=== PATIENT | male | born 1950 | race Two or more races ===

== ENCOUNTER 2020-07-19 07:48 | Emergency (ER) | payer BC, MEDICARE ==
[~2020-07-19] VITALS: Ht 170.2 cm; Wt 84.8 kg
[2020-07-19] MEDS ORDERED: ADVAIR 100-501 EACH INH (08:12)
[2020-07-19 08:14] VITALS: BP 149/83
[2020-07-19] MEDS ORDERED: Acetaminophen 500mg (ES) tab ORAL ONE (08:15)
--- NOTE | 2020-07-19 08:15 | Emergency Room Report ---
History of Present Illness General Chief Complaint: Fever Source: Patient Present Illness HPI Patient presents with fever since . He was working in his apartment on [address] and felt blast of cold air on his back. Today he had a temperature of 101 at home and took a couple of aspirin. He is complaining about a mild headache at this time. According to his daughter he also has a rash. He neglected to say anything about this during the initial evaluation. Denies sore throat. He has decreased hearing. This headache is mild at this time by temporal and improved after taking aspirin. He denies any neck pain. There is no nausea, vomiting, diarrhea dysuria. He took a COVID-19 test yesterday but does not have the results. The patient has been social isolating. He denies any contacts with COVID-19 positive people. No sore throat, chest pain, palpitations, nausea, vomiting, diarrhea, dysuria, abdominal pain, shortness of breath, joint pain, depression, anxiety, visual changes, dizziness. Allergies: Coded Allergies: No Known Allergies (Unverified , 07/19/20) COVID-19 Screening Contact w/high risk pt: Yes Experienced COVID-19 symptoms?: Yes COVID-19 Testing performed OUTSIDE [employer]: Yes COVID-19 Screening: PUI COVID-19 COVID-19 Testing Source: nasal Patient History Past Medical History: see triage record Past Surgical History: other - Abdominal surgery for colonic polyps Social History Narrative retired from [employer] [place]. Father of Sandie Reviewed Nursing Documentation: PMH: Agreed; PSxH: Agreed Nursing Documentation-PMH Past Medical History: No History, Except For Hx Asthma: Yes Review of Systems All Other Systems: negative except mentioned in HPI Physical Exam Vital Signs Date Time Temp Pulse Resp B/P (MAP) Pulse Ox O2 Delivery O2 Flow Rate FiO2 07/19/20 08:04 99.5 75 17 165/85 (111) 96 Room Air Sp02 EP Interpretation: reviewed, normal General Appearance: well appearing, no apparent distress, GCS 15 Head: normocephalic Eyes: bilateral eye normal inspection, bilateral eye PERRL, bilateral eye EOMI ENT: normal pharynx, TMs + canals normal, moist mucus membranes Neck: supple, no meningismus Respiratory: lungs clear, normal breath sounds Cardiovascular #1: regular rate, rhythm Cardiovascular #2: 2+ radial (R) Gastrointestinal: normal inspection, normal bowel sounds, non tender, no mass, non-distended Musculoskeletal: back normal, normal range of motion, gait/station normal Neurologic: alert, oriented x3 Skin: warm/dry, other - Vesicular lesions in the teeth 3 dermatome on the right-hand side Medical Decision Making Diagnostic Impression: Primary Impression: Shingles Qualified Codes: B02.9 - Zoster without complications Additional Impression: COVID-19 ruled out by laboratory testing ER Course Patient presents with fever since , today is Monday. Differential includes COVID-19, viral syndrome, pneumonia, urinary tract infection, shingles amongst others. Based on his physical exam shingles is the diagnosis. However it is important to exclude COVID-19 and other [place] comorbid conditions. Patient is given a dose of Tylenol and also started on acyclovir. EKG no injury. Chest x-ray normal (read by radiologist as possible blunting of left costophrenic angle which is suspect). White count normal. CMP unremarkable. CPK elevated minimally. Urinalysis clear. COVID-19 negative Patient improved with treatment. Discussed treatment plan. Patient stable for outpatient observation and treatment. Laboratory Tests Test 07/19/20 08:08 07/19/20 08:15 Urine Color Yellow Urine Appearance Clear Urine pH 5 (4.5-8.0) Urine Specific [place] 1.020 (1.005-1.035) Urine Protein Negative (NEGATIVE) Urine Glucose (UA) Negative (NEGATIVE) Urine Ketones 1+ (NEGATIVE) H Urine Blood 1+ (NEGATIVE) H Urine Nitrite Negative (NEGATIVE) Urine Bilirubin Negative (NEGATIVE) Urine Urobilinogen Normal MG/DL (0.0-1.0) Urine Leukocyte Esterase Negative (NEGATIVE) Urine RBC 2-4 /HPF (0 - 0) H Urine WBC 0 /HPF (0 - 0) Urine Squamous Epithelial Cells None /LPF (NONE/OCC) Urine Bacteria None /HPF (NONE) Urine Mucus Occasional /LPF White Blood Count 7.4 K/UL (4.8-10.8) Red Blood Count 5.46 M/UL (4.70-6.10) Hemoglobin 16.1 G/DL (14.2-18.0) Hematocrit 45.5 % (42.0-52.0) Mean Corpuscular Volume 83 FL (80-99) Mean Corpuscular Hemoglobin 29.4 PG (27.0-31.0) Mean Corpuscular Hemoglobin Concent 35.3 G/DL (32.0-36.0) Red Cell Distribution Width 11.1 % (11.6-14.8) L Platelet Count 162 K/UL (150-450) Mean Platelet Volume 6.8 FL (6.5-10.1) Neutrophils (%) (Auto) 72.5 % (45.0-75.0) Lymphocytes (%) (Auto) 18.8 % (20.0-45.0) L Monocytes (%) (Auto) 6.3 % (1.0-10.0) Eosinophils (%) (Auto) 1.7 % (0.0-3.0) Basophils (%) (Auto) 0.7 % (0.0-2.0) Prothrombin Time 11.4 SEC (9.30-11.50) Prothrombin Time INR 1.0 (0.9-1.1) Activated Partial Thromboplast Time 26 SEC (23-33) Sodium Level 135 MMOL/L (136-145) L Potassium Level 4.8 MMOL/L (3.5-5.1) Chloride Level 103 MMOL/L (98-107) Carbon Dioxide Level 28 MMOL/L (21-32) Anion Gap 4 mmol/L (5-15) L Blood Urea Nitrogen 13 mg/dL (7-18) Creatinine 1.0 MG/DL (0.55-1.30) Estimated Glomerular Filtration Rate > 60 mL/min (>60) Glucose Level 133 MG/DL (74-106) H Lactic Acid Level 1.60 mmol/L (0.4-2.0) Calcium Level 9.4 MG/DL (8.5-10.1) Magnesium Level 2.1 MG/DL (1.8-2.4) Ferritin 315 NG/ML (8-388) Total Bilirubin 0.4 MG/DL (0.2-1.0) Aspartate Amino Transferase (AST) 19 U/L (15-37) Alanine Aminotransferase (ALT) 25 U/L (12-78) Alkaline Phosphatase 77 U/L (46-116) Lactate Dehydrogenase 225 U/L (81-234) Total Creatine Kinase 382 U/L (26-308) H Troponin I 0.000 ng/mL (0.000-0.056) C-Reactive Protein, Quantitative < 0.4 mg/dL (0.00-0.90) Pro-B-Type Natriuretic Peptide 62 pg/mL (0-125) Total Protein 8.3 G/DL (6.4-8.2) H Albumin 4.0 G/DL (3.4-5.0) Globulin 4.3 g/dL Albumin/Globulin Ratio 0.9 (1.0-2.7) L Lipase 131 U/L (73-393) Microbiology Date/Time Source Procedure Growth Status 07/19/20 08:15 Nasopharynx SARS-CoV-2 RdRp Gene Assay - Final Complete EKG Diagnostic Results Rate: normal Rhythm: NSR ST Segments: no acute changes Rhythm Strip Diag. Results EP Interpretation: yes Rhythm: NSR, no PVC's, no ectopy Chest X-Ray Diagnostic Results Chest X-Ray Diagnostic Results : Chest X-Ray Ordered: Yes # of Views/Limited/Complete: 1 View Indication: Other EP Interpretation: Yes Interpretation: no consolidation, no effusion, no pneumothorax Impression: No acute disease Electronically Signed by: Electronically signed by Tyson Downing MD Last Vital Signs Date Time Temp Pulse Resp B/P (MAP) Pulse Ox O2 Delivery O2 Flow Rate FiO2 07/19/20 10:57 98.0 82 18 130/80 98 Room Air Status: improved Disposition: HOME, SELF-CARE Condition: Improved Scripts Acetaminophen (Tylenol) 325 Mg Tablet 650 MG ORAL Q6H PRN for fever or pain, #20 TAB 0 Refills Prov: Tyson Downing MD 07/19/20 Capsaicin (Zostrix High Potency) 56.6 Gm Cream..g. 1 APPLIC TP BID PRN for shingles pain, #30 GM Prov: Tyson Downing MD 07/19/20 Valacyclovir Hcl* (VALTREX*) 500 Mg Tablet 1000 MG ORAL TID, #21 TAB Prov: Tyson Downing MD 07/19/20 Referrals: NON PHYSICIAN (PCP) Tyson Downing MD Jul 19, 2020 08:14
[2020-07-19 08:46] LABS: BASOPHILS % (AUTO) 0.7 % (0.0-2.0); EOSINOPHILS % (AUTO) 1.7 % (0.0-3.0); HEMATOCRIT 45.5 % (42.0-52.0); HEMOGLOBIN 16.1 G/DL (14.2-18.0); LYMPHOCYTES % (AUTO) 18.8 % (20.0-45.0); MEAN CORPUSCULAR VOLUME 83 FL (80-99); MONOCYTES % (AUTO) 6.3 % (1.0-10.0); NEUTROPHILS % (AUTO) 72.5 % (45.0-75.0); PLATELET COUNT 162 K/UL (150-450); RED BLOOD COUNT 5.46 M/UL (4.70-6.10); RED CELL DISTRIBUTION WIDTH 11.1 % (11.6-14.8); WHITE BLOOD COUNT 7.4 K/UL (4.8-10.8)
[2020-07-19 09:00] LABS: ANION GAP 4 mmol/L (5-15); BLOOD UREA NITROGEN 13 mg/dL (7-18); CALCIUM 9.4 MG/DL (8.5-10.1); CARBON DIOXIDE 28 MMOL/L (21-32); CHLORIDE 103 MMOL/L (98-107); POTASSIUM 4.8 MMOL/L (3.5-5.1); SODIUM 135 MMOL/L (136-145)
--- NOTE | 2020-07-19 09:08 | Diagnostic Imaging Report ---
EXAM: XR Chest, 1 View CLINICAL HISTORY: CP TECHNIQUE: Frontal view of the chest. COMPARISON: No relevant prior studies available. FINDINGS: Lungs: There is blunting left costophrenic angle may represent atelectasis, infiltrate or small left pleural effusion. No additional infiltrates are identified. Progress films are recommended. Pleural space: See above. Heart: Unremarkable. No cardiomegaly. Mediastinum: Unremarkable. Bones/joints: Unremarkable. IMPRESSION: There is blunting left costophrenic angle may represent atelectasis, infiltrate or small left pleural effusion. No additional infiltrates are identified. Progress films are recommended.
[2020-07-19 09:24] LABS: ALANINE AMINOTRANSFERASE 25 U/L (12-78); ALBUMIN/GLOBULIN RATIO 0.9 (1.0-2.7); ALKALINE PHOSPHATASE 77 U/L (46-116); ASPARTATE AMINO TRANSFERASE 19 U/L (15-37); BILIRUBIN,TOTAL 0.4 MG/DL (0.2-1.0); CREATINE KINASE 382 U/L (26-308); FERRITIN 315 NG/ML (8-388); LACTATE DEHYDROGENASE 225 U/L (81-234)
[2020-07-19] MEDS ORDERED: TYLENOL325 MG ORAL (09:40)
[2020-07-19] MEDS ORDERED: VALACYCLOVIR500 MG ORAL (09:40)
[2020-07-19] MEDS ORDERED: [UNRECOGNIZED DRUG - OTHER] TP (09:40)
[2020-07-19 10:10] LABS: APPEARANCE,URINE CLEAR; BILIRUBIN, URINE NEGATIVE (NEGATIVE); GLUCOSE, URINE (UA) NEGATIVE (NEGATIVE); KETONES,URINE 1+ (NEGATIVE); LEUKOCYTE ESTERASE ,URINE NEGATIVE (NEGATIVE); NITRITE,URINE NEGATIVE (NEGATIVE); PH,URINE 5 (4.5-8.0); PROTEIN,URINE NEGATIVE (NEGATIVE); UROBILINOGEN,URINE NORMAL MG/DL (0.0-1.0)
[2020-07-19 10:15] VITALS: BP 161/90
[2020-07-19 10:16] LABS: COLOR,URINE YELLOW
[2020-07-19 10:57] VITALS: BP 130/80
== END 2020-07-19 11:03 | disposition home or self-care (01) ==
LOC: EMR 08:13
DX: B02.9 Zoster without complications (principal); R51.9 Headache, unspecified
CPT/HCPCS: 36415; 71045; 80053; 81003; 82550; 82728; 83605; 83615; 83690; 83735; 83880; 84484; 85025; 85610; 85730; 86140; 93005; 99284; U0002